=== PATIENT | female | born 1960 | race Caucasian/White ===

== ENCOUNTER → 2022-10-15 09:10 | Outpatient (REF) | payer OTHER, SELFPAY ==
[2022-10-15 11:05] LABS: Hematocrit 35.2 % (37.0-47.0); Hemoglobin 11.9 g/dL (12.0-16.0); Mean Corp Hgb Conc. 33.8 g/dL (33.0-37.0); Mean Corpuscular Volume 94.6 fL (81.0-99.0); Mean Platelet Volume 10.1 fL (7.4-10.4); Platelet Count 216 10^3/uL (130-400); Red Blood Cell Count 3.72 10^6/uL (4.20-5.40); Red Cell Dist. Width 12.4 % (11.5-14.5)
[2022-10-15 11:19] LABS: INR 0.97; PT 13.1 Sec (11.4-14.6)
[2022-10-15 11:20] LABS: APTT 28.5 Sec (23.4-35.0)
[2022-10-15 11:31] LABS: ALT (SGPT) 20 U/L (0-35); AST (SGOT) 24 U/L (14-36); Albumin 4.4 g/dl (3.5-5.0); Alkaline Phosphatase 76 U/L (38-126); Blood Urea Nitrogen 21 mg/dl (7-17); Calcium 9.9 mg/dl (8.4-10.2); Carbon Dioxide 22 mmol/L (22-30); Chloride 109 mmol/L (98-107); Glomerular Filtration Rate 45.2; Glucose 79 mg/dl (70-99); Potassium 4.3 mmol/L (3.5-5.1); Sodium 143 mmol/L (135-145); Total Bilirubin 0.6 mg/dl (0.2-1.3)
[2022-10-15 13:20] VITALS: BMI 26.4
--- NOTE | 2022-10-20 16:43 | PTCARENOTE ---
Abnormal EKG. Pt will need a cardiac clearance per Dr. Olguin. Alicia in Dr. Mullen's office made aware.
== END ==
LOC: SDSPAT 09:10
PROVIDERS: ATTENDING PHYSICIAN Surgery; FAMILY PHYSICIAN Internal Medicine Geriatric Medicine
DX: Z01.818 Encounter for other preprocedural examination (principal); E21.0 Primary hyperparathyroidism
CPT/HCPCS: 36415; 80053; 85027; 85610; 85730; 93005

== ENCOUNTER → 2023-10-07 12:47 | Outpatient (REF) | payer OTHER, SELFPAY | LOC: PAVMRI 12:47 | PROVIDERS: ATTENDING PHYSICIAN Specialist; FAMILY PHYSICIAN Internal Medicine Geriatric Medicine | DX: D32.0 Benign neoplasm of cerebral meninges (principal) | CPT/HCPCS: 70553; A9575 ==

== ENCOUNTER → 2023-11-23 10:04 | Outpatient (REF) | payer OTHER, SELFPAY | LOC: HWWDC 10:04 | PROVIDERS: ATTENDING PHYSICIAN Internal Medicine Geriatric Medicine | DX: Z12.31 Encounter for screening mammogram for malignant neoplasm of breast (principal) | CPT/HCPCS: 77063; 77067 ==

== ENCOUNTER 2024-09-04 06:25 | Day surgery (SDC) | payer OTHER, SELFPAY | END 2024-09-04 12:04 | disposition home or self-care (01) | LOC: GI 06:25 | PROVIDERS: ATTENDING PHYSICIAN Internal Medicine | DX: R10.13 Epigastric pain (principal); R13.10 Dysphagia, unspecified; K22.89 Other specified disease of esophagus; K31.7 Polyp of stomach and duodenum; K31.89 Other diseases of stomach and duodenum; K25.9 Gastric ulcer, unspecified as acute or chronic, without hemorrhage or perforation; K22.2 Esophageal obstruction; K29.50 Unspecified chronic gastritis without bleeding | CPT/HCPCS: 43239; 88305; 88342 ==

== ENCOUNTER 2024-11-15 06:08 | Day surgery (SDC) | payer OTHER, SELFPAY ==
[2024-11-15 08:40] VITALS: BMI 22.3
[2024-11-15 08:42] VITALS: BMI 22.3
[2024-11-15 08:46] VITALS: BP 129/85
[2024-11-15 10:18] VITALS: BP 118/85
[2024-11-15 10:30] VITALS: BP 123/83
[2024-11-15 10:45] VITALS: BP 120/81
== END 2024-11-15 11:12 | disposition home or self-care (01) ==
LOC: GI 06:08
PROVIDERS: ATTENDING PHYSICIAN Internal Medicine Gastroenterology
DX: R13.10 Dysphagia, unspecified (principal); R93.3 Abnormal findings on diagnostic imaging of other parts of digestive tract; K22.2 Esophageal obstruction
CPT/HCPCS: 43235

== ENCOUNTER → 2025-02-27 13:10 | Outpatient (REF) | payer OTHER, SELFPAY | LOC: HWWDC 13:10 | PROVIDERS: ATTENDING PHYSICIAN Family Medicine | DX: Z12.31 Encounter for screening mammogram for malignant neoplasm of breast (principal) | CPT/HCPCS: 77063; 77067 ==